=== PATIENT | male | born 2000 | race Caucasian/White ===

== ENCOUNTER 2021-10-04 12:15 | Emergency (ER) | payer BC, SELFPAY ==
[2021-10-04 12:21] VITALS: BP 103/41; PULSE 81; RESP 12; TEMP 37.4; O2SAT 99
--- NOTE | 2021-10-04 12:29 | ED.HEATRA ---
HPI - Head Injury General Chief complaint: Wound/Laceration Stated complaint: head injury Time Seen by Provider: 10/04/21 12:29 Source: patient, family, RN notes reviewed and old records reviewed Mode of arrival: ambulatory Limitations: no limitations History of Present Illness HPI Narrative: 21 year old male accompanied by mother presents to express care with laceration to the middle forehead into scalp which occurred this morning when he hit his head on pool about 30 minutes prior to arrival. Patient states that he hit his head on bottom of pool causing laceration to mid upper forehead into scalp with minimally subcutaneous laceration present of 1.5cm linear. Patient has full ROM of his neck and denies any tingling to his arms or fingers, reports some mild lateral neck discomfort he reports as muscular. MD Complaint: other (laceration to forehead) Onset (ago): minute(s) (30 minutes) Arrival Conditions: other (ambulatory) Place: home Loss of Consciousness: no Related Data Home Medications Medication Instructions Recorded Confirmed No Home Medications 10/04/21 10/04/21 Allergies Allergy/AdvReac Type Severity Reaction Status Date / Time amoxicillin Allergy Mild Rash Verified 10/04/21 12:21 [email or web address] [From Ceftin] Allergy Rash Verified 10/04/21 12:21 latex Allergy Rash Verified 10/04/21 12:21 Review of Systems Review of Systems: CONSTITUTIONAL: Denies fever, chills, or sweats. EYES: Denies visual changes, redness, or discharge. ENT: Denies rhinorrhea, congestion, sore throat, or otalgia. CARDIOVASCULAR: Denies chest pain, palpitations, or edema. RESPIRATORY: Denies cough or dyspnea. GASTROINTESTINAL: Denies abdominal pain, nausea, vomiting, or diarrhea. GENITOURINARY: Denies dysuria or hematuria. SKIN: Denies rash or itching. Positive for laceration to mid forehead into the hairline MUSCULOSKELETAL: Denies back pain, joint pain, or myalgia. NEUROLOGIC: Denies headache, numbness, or weakness. PSYCHIATRIC: Denies anxiety or depression. All systems reviewed & are unremarkable except as noted in HPI and below PMFSH Past Medical History Medical History No significant past medical history Surgical History Surgical History Broken arm surgery History of placement of ear tubes No significant past surgical history Social History Social History Smoking status: Current every day smoker Tobacco type: e-cigarettes/vaping Alcohol intake: current Substance use: unknown Comments At time of signature, agree with nursing past medical, surgical, social and family history. There is no relevant family history pertinent to the presenting complaint Exam Narrative: GENERAL: Well-appearing, well-nourished, and in no acute distress. HEAD: Normocephalic, atraumatic. laceration mid forehead into hairline total 1.5 cm length no LOC EYES: PERRLA and EOMI. ENT: Nares clear, no rhinorrhea or epistaxis. Mucous membranes moist.TM's normal with good light reflex, throat pink with no lesions or exudates no tonsil swelling. NECK: Supple. mild lateral muscular discomfort, full ROM no tingling or numbness to extremities CHEST: Clear to auscultation. No respiratory distress.SAO2 99% on room air. HEART: Regular rate and rhythm. No murmur heard. Normal peripheral pulses. ABDOMEN: Soft, nontender, nondistended, normal active bowel sounds. EXTREMITIES: Normal range of motion. No edema. SKIN: Warm, dry, no rash. NEURO: No focal deficits. Alert and oriented x3.cranial nerves II-XII intact with no abnormalities Course Course Level of Care: Express Care Visit Vital Signs Vital signs: Vital Signs Temperature 37.4 C 10/04/21 12:21 Pulse Rate 81 10/04/21 12:21 Respiratory Rate 12 10/04/21 12:21 Blood Pressure 103/41 L 10/04/21 12:21 Pulse Oximetry 99 10/04/21
[2021-10-04] MEDS: LIDOCAINE HCL 1% LOCAL INJ 20 ML VIAL 10 ML INFILTRATE (13:38)
== END 2021-10-04 13:08 | disposition home or self-care (01) ==
PROVIDERS: Emergency Provider Registered Nurse; PCP Physician Assistant
DX: S01.81XA Laceration without foreign body of other part of head, initial encounter (principal); W22.8XXA Striking against or struck by other objects, initial encounter; F17.290 Nicotine dependence, other tobacco product, uncomplicated
CPT/HCPCS: 12001; 99212; G0463

== ENCOUNTER 2021-10-11 12:19 | Emergency (ER) | payer BC, SELFPAY ==
[2021-10-11 12:27] VITALS: BP 107/63; PULSE 69; RESP 16; TEMP 37.1; O2SAT 100
--- NOTE | 2021-10-11 12:34 | ED.WOUNDLAC ---
HPI - Wound/Laceration General Chief Complaint: Wound/Laceration Stated Complaint: stitches removed Time Seen by Provider: 10/11/21 12:38 Source: patient and RN notes reviewed Mode of arrival: ambulatory Limitations: no limitations History of Present Illness HPI narrative: 21-year-old male presents with suture removal. Reports he had sutures placed on his forehead on 623. He denies any complications or concerns. Related Data Home Medications Medication Instructions Recorded Confirmed No Home Medications 10/04/21 10/04/21 Allergies Allergy/AdvReac Type Severity Reaction Status Date / Time amoxicillin Allergy Mild Rash Verified 10/04/21 12:21 cefuroxime [From Ceftin] Allergy Rash Verified 10/04/21 12:21 latex Allergy Rash Verified 10/04/21 12:21 Review of Systems Review of Systems: CONSTITUTIONAL: Denies malaise, chills, sweats, or fever. SKIN: Reports healed laceration with sutures in place to the forehead MUSCULOSKELETAL: Denies muscle skeletal pain NEUROLOGIC: Denies numbness, weakness, headache All systems reviewed & are unremarkable except as noted in HPI and below PMFSH Past Medical History Medical History No significant past medical history Surgical History Surgical History Broken arm surgery History of placement of ear tubes No significant past surgical history Social History Social History Smoking status: Current every day smoker Tobacco type: e-cigarettes/vaping Alcohol intake: current Substance use: unknown Comments At time of signature, agree with nursing past medical, surgical, social and family history. There is no relevant family history pertinent to the presenting complaint Exam Narrative: GENERAL: Well-appearing, well-nourished, and in no acute distress. HEAD: Normocephalic EYES: PERRLA, conjunctivae clear ENT: Mucous membranes moist. NECK: Supple. No lymphadenopathy CHEST: Clear to auscultation. No respiratory distress. HEART: Regular rate and rhythm. SKIN: Warm, dry. 5 intact sutures noted to the mid forehead near the hairline, partially in the hairline without surrounding erythema, edema, induration, drainage NEURO: Alert and oriented x3. PSYCH: Normal mood and affect Course Course Emergency Course: Patient is aware of diagnosis, understands and agrees to treatment plan. Anticipatory guidance given. Patient agrees to follow-up as directed and is aware of reasons to seek care at the emergency department. Portions of this record may have been created with voice recognition software Level of Care: Express Care Visit Vital Signs Vital signs: Vital Signs Temperature 98.8 F 10/11/21 12:27 Pulse Rate 69 10/11/21 12:27 Respiratory Rate 16 10/11/21 12:27 Blood Pressure 107/63 10/11/21 12:27 Pulse Oximetry 100 10/11/21 12:27 Oxygen Delivery Room Air 10/11/21 12:27 Temperature 98.8 F 10/11/21 12:27 Pulse Rate 69 10/11/21 12:27 Respiratory Rate 16 10/11/21 12:27 Blood Pressure 107/63 10/11/21 12:27 Pulse Oximetry 100 10/11/21 12:27 Oxygen Delivery Room Air 10/11/21 12:27 Reviewed. MDM - Wound/Laceration MDM Narrative Medical decision making narrative: Verbal consent was obtained. Wound well approximated, no erythema, induration, or discharge noted. 5 completely removed in a sterile fashion. Patient tolerated procedure well, no complications. Patient advised to look for and return for any signs of infection such as redness, swelling, discharge, or worsening pain. Differential Diagnosis Differential diagnosis: Likely laceration, abrasion and avulsion of skin Critical Care Time Critical Care Time Critical Care Time: No Discharge Plan Discharge Clinical Impression: Encounter for removal of sutures Patient Disposition: Home, Self-Care
== END 2021-10-11 12:56 | disposition home or self-care (01) ==
PROVIDERS: Emergency Provider Nurse Practitioner; PCP Physician Assistant
DX: S01.81XD Laceration without foreign body of other part of head, subsequent encounter (principal); X58.XXXD Exposure to other specified factors, subsequent encounter; F17.290 Nicotine dependence, other tobacco product, uncomplicated
CPT/HCPCS: 99211; G0463